=== PATIENT | male | born 1940 | race Caucasian/White ===

== ENCOUNTER 2022-11-19 02:05 | Inpatient (IN) | payer OTHER, BC ==
[~2022-11-19] VITALS: Ht 182.9 cm; Wt 105.2 kg
[2022-11-19 02:09] VITALS: BP 139/63
--- NOTE | 2022-11-19 02:09 | NUR ---
PT OFFLOADED TO BED 11
--- NOTE | 2022-11-19 02:27 | NUR ---
swabbed patient for harinder and influenza a&b
[2022-11-19] MEDS ORDERED: NACL 0.9% 1,000 ML IV ONE (03:10)
[2022-11-19 03:22] LABS: BASOPHILS # (AUTO) 0.1 K/uL (0.00-0.22); BASOPHILS % (AUTO) 0.6 % (0.0-2.0); EOSINOPHILS # (AUTO) 0.1 K/uL (0-0.4); EOSINOPHILS % (AUTO) 0.7 % (0.0-4.0); HEMATOCRIT 36.2 % (36-52); LYMPHOCYTES # (AUTO) 0.7 K/uL (2.0-11.5); LYMPHOCYTES % (AUTO) 7.4 % (20.5-51.1); MEAN CORPUSCULAR HEMOGLOBIN 29 pg (27-31); MEAN CORPUSCULAR HGB CONC 33 g/dL (33-37); MEAN CORPUSCULAR VOLUME 88.2 fL (80-94); MONOCYTES # (AUTO) 0.8 K/uL (0.8-1.0); MONOCYTES % (AUTO) 8.4 % (1.7-9.3); NEUTROPHILS % (AUTO) 82.9 % (42.2-75.2); PLATELET COUNT (AUTO) 281 K/uL (140-450); RED BLOOD CELL COUNT(AUTO) 4.11 MIL/uL (4.20-6.10); RED CELL DISTRIBUTION WIDTH 14.3 % (11.6-13.7); WHITE BLOOD COUNT (AUTO) 9.6 K/uL (4.8-10.8)
[2022-11-19 03:41] LABS: ANION GAP 15.4 (8-16); CARBON DIOXIDE 25.7 mmol/L (21-32); CHLORIDE 103 mmol/L (98-107); CREATININE 1.4 mg/dL (0.6-1.3); GLUCOSE 207 mg/dL (74-106); POTASSIUM 5.1 mmol/L (3.5-5.1); SODIUM SERUM 139 mmol/L (136-145); UREA NITROGEN, BLOOD 19 mg/dL (7-18)
--- NOTE | 2022-11-19 04:23 | NUR ---
pt to CT via [facility]
--- NOTE | 2022-11-19 04:48 | NUR ---
Patient back from CT. Patient appears to be resting comfortably in bed with eyes closed and at bedside. Vital Signs within normal limits and Respirations even and unlabored. pt denies any pain at this time no n/v and shortness of breath. Patient attached to the library monitor.
--- NOTE | 2022-11-19 05:43 | NUR ---
PO challenge done on patient, pt was unable to swallow fluids stating 'it feels like my throat doesn't want anything down there'. made aware.
[2022-11-19] MEDS ORDERED: METF-346 PO (05:58)
[2022-11-19] MEDS ORDERED: TAMS0.4C96 PO (05:58)
[2022-11-19] MEDS ORDERED: GLIP5TER PO (05:58)
--- NOTE | 2022-11-19 06:59 | NUR ---
PT ABLE TO SWALLOW VISCOUS LIDOCAINE WITH SOME DIFFICULTY WITH ER MD VARMA AT BEDSIDE.
[2022-11-19 07:13] VITALS: BP 131/65
--- NOTE | 2022-11-19 07:13 | NUR ---
Patient does not wish to proceed with medical care recommended by Dr. Garcia and . Patient given information related to possible complications, up to and including , which could occur as a result of leaving hospital at this time. Patient verbalizes understanding of risks involved leaving against medical advice. Patient has signed AMA form.
== END 2022-11-19 07:13 | disposition left against medical advice (07) | DRG 392 ==
LOC: MED 02:05 → MMU 06:33
PROVIDERS: ADMIT Family Medicine; ATTEND Family Medicine
DX: R13.10 Dysphagia, unspecified (principal); Z53.29 Procedure and treatment not carried out because of patient's decision for other reasons; Z20.822 Contact with and (suspected) exposure to COVID-19
CPT/HCPCS: 36415; 70491; 71045; 80048; 85025; 96360; 99285; Q0092; Q9967